=== PATIENT | female | born 1970 | race Hispanic/Latino ===

== ENCOUNTER 2024-06-03 05:44 | Emergency (ER) | payer SELFPAY ==
[~2024-06-03] VITALS: Ht 157.5 cm; Wt 81.6 kg
[2024-06-03 05:50] VITALS: PULSE 106; RESP 21; TEMP 100.2
[2024-06-03] MEDS: ACETAMINOPHEN 325 MG TAB PO ONE (06:45)
[2024-06-03] MEDS ORDERED: VENTOLIN HFA18 GM INH (07:01)
[2024-06-03] MEDS ORDERED: TAMIFLU75 MG PO (07:02)
[2024-06-03] MEDS ORDERED: IBUPROFEN600 MG PO (07:02)
[2024-06-03 07:07] VITALS: BP 138/85; PULSE 98; RESP 21; TEMP 99.8; O2SAT 96
== END 2024-06-03 07:10 | disposition home or self-care (01) ==
LOC: FSED 05:50
DX: R50.9 Fever, unspecified (principal); J10.1 Influenza due to other identified influenza virus with other respiratory manifestations; R05.9 Cough, unspecified
CPT/HCPCS: 99283